=== PATIENT | male | born 1960 | race Caucasian/White ===

== ENCOUNTER 2022-03-23 13:53 | Emergency (ER) | payer OTHER ==
[~2022-03-23] VITALS: Ht 182.9 cm; Wt 81.6 kg
[~2022-03-23 13:53] MED LIST: AVELOX ABC PAC400 MG PO; TUSSIN DM 400-1 EACH PO; VASOTEC5 MG
[2022-03-23] MEDS ORDERED: LOSARTAN POTASS50 MG PO (14:44)
[2022-03-23] MEDS ORDERED: ROSUVASTATIN CA40 MG PO (14:44)
[2022-03-23] MEDS ORDERED: BUPROPION XL300 MG PO (14:44)
[2022-03-23] MEDS ORDERED: XARELTO15 MG PO (14:44)
[2022-03-23] MEDS ORDERED: METFORMIN HCL500 M4 PO (14:44)
[2022-03-23] MEDS ORDERED: LEVOTHYROXINE112 MCG PO (14:44)
== END 2022-03-23 20:13 | disposition home or self-care (01) ==
LOC: ER 13:53
DX: J06.9 Acute upper respiratory infection, unspecified (principal); Z20.822 Contact with and (suspected) exposure to COVID-19